=== PATIENT | female | born 1970 | race Caucasian/White ===

== ENCOUNTER 2017-02-04 12:27 | Emergency (ER) | payer MEDICAID ==
[~2017-02-04] VITALS: Ht 162.6 cm; Wt 67.8 kg
[2017-02-04 12:29] VITALS: Ht 162.6 cm; Wt 67.8 kg
[2017-02-04 13:00] LABS: ADD SCAN DIFF NO
[2017-02-04 13:03] LABS: BASOPHILS % 0.5 % (0.0-2.0); EOSINOPHILS # 0.2 10^3/ul (0.0-0.5); EOSINOPHILS % 2.8 % (0.0-7.0); HEMATOCRIT 41.1 % (37.0-47.0); HEMOGLOBIN 13.7 g/dl (12.0-16.0); LYMPHOCYTES # 2.2 10^3/ul (0.8-2.9); LYMPHOCYTES % 26.7 % (15.0-51.0); MEAN CORPUSCULAR HEMOGLOBIN 30.3 pg (29.0-33.0); MEAN CORPUSCULAR HGB CONC 33.3 g/dl (32.0-37.0); MEAN CORPUSCULAR VOLUME 90.9 fl (82.0-101.0); MEAN PLATELET VOLUME 9.6 fl (7.4-10.4); MONOCYTE # 0.8 10^3/ul (0.3-0.9); MONOCYTES % 10.1 % (0.0-11.0); NEUTROPHIL # 4.9 10^3/ul (1.6-7.5); NEUTROPHILS % 59.4 % (39.0-77.0); PLATELET COUNT 376 10^3/UL (140-415); RED BLOOD COUNT 4.52 10^6/ul (4.20-5.40); RED CELL DISTRIBUTION WIDTH 13.4 % (11.5-14.5); WHITE BLOOD COUNT 8.2 10^3/ul (4.8-10.8)
[2017-02-04 13:05] LABS: ADD UMIC YES; URINE BILIRUBIN (Dip) NEGATIVE (NEGATIVE); URINE BLOOD (Dip) 2+ (NEGATIVE); URINE COLOR LT. YELLOW (YELLOW); URINE GLUCOSE (Dip) NEGATIVE (NEGATIVE); URINE KETONES (Dip) NEGATIVE (NEGATIVE); URINE LEUKOCYTE ESTERASE (Dip) NEGATIVE (NEGATIVE); URINE NITRITE (Dip) NEGATIVE (NEGATIVE); URINE TOTAL PROTEIN (Dip) NEGATIVE (NEGATIVE); URINE UROBILINOGEN (Dip) 0.2 E.U./dL (0.1-1.0)
[2017-02-04 13:28] LABS: ALBUMIN 4.6 g/dl (3.3-4.9); POTASSIUM 3.8 mmol/L (3.5-5.1)
[2017-02-04 13:30] LABS: CREATININE 0.7 mg/dl (0.44-1.00)
[2017-02-04 13:31] LABS: ALBUMIN/GLOBULIN RATIO 1.27; BILIRUBIN,INDIRECT 0.7 mg/dl (0-1.1); BILIRUBIN,TOTAL 0.7 mg/dl (0.2-1.3); CALCIUM 9.4 mg/dl (8.4-10.2); TOTAL PROTEIN 8.2 g/dl (6.1-8.1)
--- NOTE | 2017-02-04 14:00 | RADRPT ---
PROCEDURE: CT abdomen and pelvis without contrast. CLINICAL INDICATION: Left flank pain TECHNIQUE: Continues 2.5 mm axial images were obtained from the domes of the diaphragms to the inf erior pubic rami. No oral or intravenous contrast was administered. The calculated dose length prod uct (DLP) = 618.6 mGy-cm. Exam CTDlvol = 10.96 mGy. One or more of the following dose reduction t echniques were used: Automated exposure control, adjustment of the mA and or KV according to patient size, or use of iterative reconstruction technique. One or more of the following dose reduction te chniques were used: Automated exposure control, adjustment of the mA and or KV according to patient size, or use of iterative reconstruction technique. COMPARISON: None. FINDINGS: The lung bases are clear. No pleural pericardial fluid is seen. Liver, gallbladder, pancreas, spleen, adrenals, and kidneys are within normal limits on this noncont rast study. There is no evidence of renal calculi or obstructive uropathy. Aorta is normal in [place]. No pathologically enlarged mesenteric lymph nodes are seen. The stomach and small bowel loops are within normal limits. No small bowel dilatation or obstruction is seen. No free fluid, free a ir, abscess in the upper abdomen CT pelvis: Images through the pelvis demonstrate physiologic free fluid in the left posterior cul-d e-sac. This is likely ovarian in etiology. Uterus and adnexa regions are grossly unremarkable. Bl adder is normally distended within normal limits. There is no bladder calculi. Evaluation of the c olon demonstrates no diverticulosis, diverticulitis or acute colitis. Normal appendix is visualized . Terminal ileum is unremarkable. No pathologically enlarged iliac chain lymph nodes are seen. No destructive bony lesions are noted IMPRESSION: 1. Physiologic free fluid in the posterior left haroldo pelvis. This likely related to ruptured ovari an cyst. If indicated this can be better evaluated with pelvic ultrasound. 2. Otherwise unremarkable unenhanced CT of the abdomen pelvis. 3. No evidence of renal calculi or obstructive uropathy. 4. Normal appendix RPTAT: HH .Kofi Cage MD, MD Date Time Electronically viewed and signed by .Kofi Cage MD, on 02/04/2017 13:59 .W/
[2017-02-04] MEDS ORDERED: IBUP-1542 PO (14:10)
[2017-02-04] MEDS ORDERED: TRAM50TA2 PO (14:10)
--- NOTE | 2017-02-04 14:18 | ERD ---
ER Documentation Chief Complaint Date/Time DATE: 02/04/17 TIME: 14:16 Chief Complaint DYSURIA X 3 DAYS HPI This 46-year-old female complains of suprapubic pain and dysuria for last 3 days. She is also had some hematuria. She was prescribed Cipro by her primary doctor but complains of persistent pain. She may have had some pain in the left flank or left lower back when the pain started. Denies any fevers or vomiting or right-sided pain. Patient presents to the ER for further evaluation as she is about to lose her insurance wants to make sure there is no further evaluation that needs to be taken place. ROS All systems reviewed and are negative except as per history of present illness. Medications Home Meds Active Scripts Ibuprofen* (Motrin*) 600 Mg Tab, 600 MG PO Q6, #20 TAB Prov:ELOISA PATRICK MD 02/04/17 Tramadol HCl (Tramadol HCl) 50 Mg Tablet, 50 MG PO Q4 Y for PAIN, #15 TAB Prov:ELOISA PATRICK MD 02/04/17 PMhx/Soc Medical and Surgical Hx: pt denies Medical Hx, pt denies Surgical Hx Hx Alcohol Use: No Hx Substance Use: No Hx Tobacco Use: No Smoking Status: Never smoker Physical Exam Vitals Vital Signs Date Time Temp Pulse Resp B/P Pulse Ox O2 Delivery O2 Flow Rate FiO2 02/04/17 12:29 98.6 83 20 139/72 99 Physical Exam Const: [] Alert, not ill-appearing. Head: Atraumatic Eyes: Normal Conjunctiva ENT: Normal External Ears, Nose and Mouth. Neck: Full range of motion..~ No meningismus. Resp: Clear to auscultation bilaterally Cardio: Regular rate and rhythm, no murmurs Abd: Soft, minimal left lower quadrant tenderness and suprapubic tenderness. No flank tenderness. R, non distended. Normal bowel sounds Skin: No petechiae or rashes Back: No midline or flank tenderness Ext: No cyanosis, or edema Neur: Awake and alert Psych: Normal Mood and Affect Result Diagram: 02/04/17 1246 02/04/17 1246 Results 24 hrs Laboratory Tests Test 02/04/17 12:00 02/04/17 12:46 Urine Color LT. YELLOW Urine Clarity CLEAR Urine pH 5.5 Urine Specific [place] 1.010 Urine Ketones NEGATIVE Urine Nitrite NEGATIVE Urine Bilirubin NEGATIVE Urine Urobilinogen 0.2 E.U./dL Urine Leukocyte Esterase NEGATIVE Urine Microscopic RBC 10-25/HPF Urine Microscopic WBC 2-5/HPF Urine Hemoglobin 2+ Urine Glucose NEGATIVE% Urine Total Protein NEGATIVE White Blood Count 8.210^3/ul Red Blood Count 4.5210^6/ul Hemoglobin 13.7g/dl Hematocrit 41.1% Mean Corpuscular Volume 90.9fl Mean Corpuscular Hemoglobin 30.3pg Mean Corpuscular Hemoglobin Concent 33.3g/dl Red Cell Distribution Width 13.4% Platelet Count 03096^3/UL Mean Platelet Volume 9.6fl Neutrophils % 59.4% Lymphocytes % 26.7% Monocytes % 10.1% Eosinophils % 2.8% Basophils % 0.5% Nucleated Red Blood Cells % 0.0/100WBC Neutrophils # 4.910^3/ul Lymphocytes # 2.210^3/ul Monocytes # 0.810^3/ul Eosinophils # 0.210^3/ul Basophils # 0.010^3/ul Nucleated Red Blood Cells # 0.010^3/ul Sodium Level 141mmol/L Potassium Level 3.8mmol/L Chloride Level 102mmol/L Carbon Dioxide Level 27mmol/L Anion Gap 16 Blood Urea Nitrogen 12mg/dl Creatinine 0.70mg/dl Glucose Level 91mg/dl Calcium Level 9.4mg/dl Total Bilirubin 0.7mg/dl Direct Bilirubin 0.00mg/dl Indirect Bilirubin 0.7mg/dl Aspartate Amino Transf (AST/SGOT) 20IU/L Alanine Aminotransferase (ALT/SGPT) 35IU/L Alkaline Phosphatase 60IU/L Total Protein 8.2g/dl Albumin 4.6g/dl Globulin 3.60g/dl Albumin/Globulin Ratio 1.27 Procedures/MDM Urine shows 2+ hemoglobin. Urine was sent for culture. CBC and CMP showed no acute abnormalities. CT abdomen and pelvis shows normal amount of free fluid in the left pelvis suggestive of possible ruptured ovarian cyst. There is no evidence of appendicitis, obstruction, pyelonephritis, abscess, additional acute complications. Patient will be discharged home instructions to continue antibiotics were given tramadol and ibuprofen for pain. Patient was advised to see primary doctor possibly neurology for persistent symptoms otherwise continue antibiotics and recheck for any worsening symptoms such as fevers, vomiting, worsening pain. The patient was stable with no new complaints during the ER course. Clinically, there is no current evidence to suggest meningitis, sepsis, acute abdomen, pneumonia, acute coronary syndrome, pulmonary embolism, or any other emergent condition appearing to require further evaluation or hospitalization. The patient should certainly return for any new or worsening symptoms per the aftercare instructions. They should otherwise follow-up with her primary care doctor for reevaluation this week. Departure Diagnosis: Primary Impression: Ovarian cyst Laterality: left Qualified Code: N83.202 - Cyst of left ovary Additional Impression: Dysuria Condition: Stable Patient Instructions: Dysuria, Hematuria, Ovarian Cyst Referrals: [facility] YOU HAVE RECEIVED A MEDICAL SCREENING EXAM AND THE RESULTS INDICATE THAT YOU DO NOT HAVE A CONDITION THAT REQUIRES URGENT TREATMENT IN THE EMERGENCY DEPARTMENT. FURTHER EVALUATION AND TREATMENT OF YOUR CONDITION CAN WAIT UNTIL YOU ARE SEEN IN YOUR DOCTORS OFFICE WITHIN THE NEXT 1-2 DAYS. IT IS YOUR RESPONSIBILITY TO MAKE AN APPOINTMENT FOR FOLOW-UP CARE. IF YOU HAVE A PRIMARY DOCTOR --you should call your primary doctor and schedule an appointment IF YOU DO NOT HAVE A PRIMARY DOCTOR YOU CAN CALL OUR PHYSICIAN REFERRAL HOTLINE AT IF YOU CAN NOT AFFORD TO SEE A PHYSICIAN YOU CAN CHOSE FROM THE FOLLOWING [facility] [address] [facility] [facility] [address] [facility] [facility] [address] [facility] [facility] [address] [facility] [facility] [phone] [id number] [facility]. [facility]. [address] Additional Instructions: Only abnormality noted today was possible left ovarian cyst which may be cause of symptoms. Recommend continue antibiotics and treat for pain and recheck with primary doctor or urologist for persistent symptoms despite treatment. Recheck sooner for fevers, vomiting, new symptoms. ELOISA PATRICK MD February 04, 2017 14:18
== END 2017-02-04 14:28 | disposition home or self-care (01) ==
LOC: FTE 12:27
DX: N83.202 Unspecified ovarian cyst, left side (principal)
CPT/HCPCS: 36415; 74176; 80053; 81001; 85025; 87086; 87591; Z7502; 81003